=== PATIENT | female | born 1965 | race Two or more races ===

== ENCOUNTER 2022-01-23 20:27 | Emergency (ER) | payer OTHER ==
[~2022-01-23] VITALS: Ht 165.1 cm; Wt 73.9 kg
[2022-01-23 20:28] VITALS: BP 146/80
== END 2022-01-24 01:33 | disposition home or self-care (01) ==
LOC: ER 20:27
DX: S90.02XA Contusion of left ankle, initial encounter (principal); W22.8XXA Striking against or struck by other objects, initial encounter; Y93.89 Activity, other specified; Y92.89 Other specified places as the place of occurrence of the external cause; Y99.8 Other external cause status
CPT/HCPCS: 73600